=== PATIENT | male | born 1970 | race Caucasian/White ===

== ENCOUNTER 2024-12-23 22:34 | Emergency (ER) | payer SELFPAY ==
[2024-12-23] MEDS ORDERED: BENZONATATE 100 MG CAP PO ONE (23:12)
[2024-12-23] MEDS ORDERED: NA CHLORIDE 0.9% 500 ML ONE (23:12)
[2024-12-23 23:35] LABS: Absolute Basophils 0.1 K/uL (0-0.5); Absolute Eosinophils 0.5 K/uL (0-0.5); Absolute Lymphocytes (CBC) 2.7 K/uL (0.7-4.9); Absolute Neutrophil 6.9 K/uL (1.8-8.0); Basophils % 0.9 % (0-1.3); Eosinophils % 4.3 % (0-4.4); Hematocrit 42.7 % (39.6-49.0); Hemoglobin 14.5 g/dL (13.6-17.9); Lymphocytes % 24.1 % (15.3-44.8); MCH 30.2 pg (27.0-35.0); MCV 88.9 fL (80-100); MPV 8.7 fL (7.6-11.3); Monocytes % 8.9 % (3.3-12.3); Neutrophils % 61.8 % (41.7-73.7); Platelets 252 thou/uL (152-406); RBC Red Blood Cell Count 4.81 M/uL (4.33-5.43); Red Cell Distribution Width 12.9 % (12.1-15.2)
[2024-12-23 23:35] LABS: Specific Gravity 1.027 (1.005-1.030); Urine Bilirubin NEGATIVE (Negative); Urine Blood Negative (Negative); Urine Clarity Clear (Clear); Urine Color Yellow (Yellow); Urine Glucose NEGATIVE (Negative); Urine Ketones NEGATIVE (Negative); Urine Microscopic Reflex YN NO UMIC; Urine Nitrite NEGATIVE (Negative); Urine Protein NEGATIVE (Negative); Urine Urobilinogen Normal (Normal)
[2024-12-23] MEDS ORDERED: LEVALBUTEROL 1.25 MG/3 ML NEB ONE (23:35)
[2024-12-23] MEDS ORDERED: IPRATROPIUM BROM 0.5MG/2.5ML ONE (23:35)
[2024-12-23] MEDS ORDERED: dexAMETHasone 10 MG/ML VIAL ONE (23:36)
[2024-12-23] MEDS ORDERED: levoFLOXacin 750 MG TAB ONE (23:36)
[2024-12-23 23:42] LABS: PT Prothrombin Time 11.4 SECONDS (10-13.0)
[2024-12-23 23:44] LABS: Barbiturates NEGATIVE (NEGATIVE); Benzodiazepines NEGATIVE (NEGATIVE); Cocaine NEGATIVE (NEGATIVE); METHAMPHETAM NEGATIVE (NEGATIVE); Methadone NEGATIVE (NEGATIVE); Opiates NEGATIVE (NEGATIVE); Phencyclidine NEGATIVE (NEGATIVE); THC Cannibis NEGATIVE (NEGATIVE)
--- NOTE | 2024-12-24 00:41 | RAD REPORT ---
EXAM DESCRIPTION: Chest Pa And Lat (2 Views) CLINICAL HISTORY: COUGH COMPARISON: None TECHNIQUE: 2 views of the chest. FINDINGS: Lung volumes adequate. Cardiac silhouette is normal in size. No pneumothorax. No large pleural effusion. No focal consolidation. No acute bony finding. IMPRESSION: No evidence of acute cardiopulmonary disease. Electronically signed by: Sharmin Gamino MD 12/23/2024 11:21 PM CDT RP TYG Due to temporary technical issues with the PACS/[employer] reporting system, reports are being selma d by the in-house radiologist without review as a courtesy to ensure prompt reporting the interpreting radiologist is fully responsible for the content of the report. Transcribed Date/Time: 12/24/2024 12:40 AM
[2024-12-24 01:02] LABS: Influenza A Ag Negative; Influenza B Ag Negative; SARS-CoV-2 Antigen Rapid Res Negative (Negative)
[2024-12-24 01:50] LABS: ALT/SGPT 20 U/L (16-61); AST/SGOT 12 U/L (15-37); Albumin 3.1 g/dL (3.4-5.0); Albumin/Globulin Ratio 0.8 (1.1-1.8); Alkaline Phosphatase 68 U/L (45-117); Anion Gap 8.8 mEq/L (5.0-15.0); BUN Blood Urea Nitrogen 14 mg/dL (7-18); Bicarbonate 26 mEq/L (21-32); Bilirubin Total 0.2 mg/dL (0.2-1.0); Globulin 3.8 g/dL (2.3-3.5); Glomerular Filtration Rate 108 ml/min (=/>90); Glucose Level 104 mg/dL (74-106); Magnesium 2.1 mg/dL (1.6-2.4); NT PRO-BNP 53 pg/mL (<125); Potassium 3.8 mEq/L (3.5-5.1); Protein, Total 6.9 g/dL (6.4-8.2); Sodium Level 137 mEq/L (136-145); Troponin High Sensitivity 3.7 pg/mL (<58.9)
[2024-12-24 01:51] LABS: Bilirubin Direct < 0.2 mg/dL (0-0.2)
--- NOTE | 2024-12-24 02:04 | EDPHYS ---
Physician Documentation [facility] Name: Brody Gifford Age: 54 yrs Sex: Male : 1970 Arrival Date: 12/23/2024 Time: 22:34 Bed 6 Private MD: ED Physician Tigre Ramsey HPI: 12/23 23:23 This 54 yrs old Male presents to ER via Ambulatory with complaints of Cough. jm 23:23 The patient or guardian reports cough, difficulty breathing, flu symptoms. Onset: The jm symptoms/episode began/occurred 3 day(s) ago. Severity of symptoms: At their worst the symptoms were mild, moderate, in the emergency department the symptoms are unchanged. Modifying factors: The symptoms are alleviated by nothing, the symptoms are aggravated by nothing. Associated signs and symptoms: The patient has no apparent associated signs or symptoms. The patient has experienced similar episodes in the past, multiple times. Historical: - Allergies: 22:52 No Known Allergies; br2 - PMHx: 22:52 None; br2 - Immunization history:: Adult Immunizations not up to date. - Infectious Disease History:: Denies. - Social history:: Smoking status: Patient reports the use of cigarette tobacco products, smokes one-half pack cigarettes per day, Patient/guardian denies using alcohol, street drugs. - Family history:: not pertinent. ROS: 23:23 Constitutional: Negative for fever, chills, and weight loss, Eyes: Negative for injury, jm pain, redness, and discharge, ENT: Negative for injury, pain, and discharge, Neck: Negative for injury, pain, and swelling, Cardiovascular: Negative for chest pain, palpitations, and edema, Abdomen/GI: Negative for abdominal pain, nausea, vomiting, diarrhea, and constipation, Back: Negative for injury and pain, : Negative for injury, bleeding, discharge, and swelling, MS/Extremity: Negative for injury and deformity, Skin: Negative for injury, rash, and discoloration, Neuro: Negative for headache, weakness, numbness, tingling, and seizure, Psych: Negative for depression, anxiety, suicide ideation, homicidal ideation, and hallucinations, Allergy/Immunology: Negative for hives, rash, and allergies, Endocrine: Negative for neck swelling, polydipsia, polyuria, polyphagia, and marked weight changes, Hematologic/Lymphatic: Negative for swollen nodes, abnormal bleeding, and unusual bruising, 23:23 Respiratory: Positive for cough, 23:23 MS/extremity: Negative for acute changes, injury or acute deformity, Exam: 23:23 Constitutional: This is a well developed, well nourished patient who is awake, alert, jm and in no acute distress. Head/Face: Normocephalic, atraumatic. Eyes: Pupils equal round and reactive to light, extra-ocular motions intact. Lids and lashes normal. Conjunctiva and sclera are non-icteric and not injected. Cornea within normal limits. Periorbital areas with no swelling, redness, or edema. ENT: Nares patent. No nasal discharge, no septal abnormalities noted. Tympanic membranes are normal and external auditory canals are clear. Oropharynx with no redness, swelling, or masses, exudates, or evidence of obstruction, uvula midline. Mucous membranes moist. Neck: Trachea midline, no thyromegaly or masses palpated, and no cervical lymphadenopathy. Supple, full range of motion without nuchal rigidity, or vertebral point tenderness. No Meningismus. Chest/axilla: Normal chest wall appearance and motion. Nontender with no deformity. No lesions are appreciated. Cardiovascular: Regular rate and rhythm with a normal S1 and S2. No gallops, murmurs, or rubs. Normal PMI, no JVD. No pulse deficits. Abdomen/GI: Soft, non-tender, with normal bowel sounds. No distension or tympany. No guarding or rebound. No evidence of tenderness throughout. Back: No spinal tenderness. No costovertebral tenderness. Full range of motion. Male : Normal genitalia with no discharge or lesions. Skin: Warm, dry with normal turgor. Normal color with no rashes, no lesions, and no evidence of cellulitis. MS/ Extremity: Pulses equal, no cyanosis. Neurovascular intact. Full, normal range of motion., bilateral aka Neuro: Awake and alert, GCS 15, oriented to person, place, time, and situation. Cranial nerves II-XII grossly intact. Motor strength 5/5 in all extremities. Sensory grossly intact. Cerebellar exam normal. Normal gait. Psych: Awake, alert, with orientation to person, place and time. Behavior, mood, and affect are within normal limits. 23:23 ECG was reviewed by the Attending Physician. 23:23 Respiratory: mild respiratory distress is noted, Respirations: labored breathing, is not present, asymmetrical chest movement, is not seen, Breath sounds: bronchial sounds, that are mild, decreased breath sounds, that are mild, Respiratory rate: 18 Vital Signs: 22:49 BP 117 / 61; Pulse 71; Resp 18; Temp 97.6; Pulse Ox 96% ; Weight 95.25 kg; Height 5 ft. br2 8 in. ; Pain 5/10; 23:45 BP 114 / 75; Pulse 67; Resp 21; Pulse Ox 99% ; jj7 12/24 00:45 BP 128 / 81; Pulse 70; Resp 18; Pulse Ox 96% ; j7 01:45 BP 122 / 93; Pulse 88; Resp 20; Pulse Ox 95% ; j7 02:13 BP 122 / 93; Pulse 88; Resp 17; Temp 97.9; Pulse Ox 95% ; 7 12/23 22:49 Body Mass Index 31.93 (95.25 kg, 172.72 cm) br2 12/23 22:49 Pain Scale: Adult br2 MDM: 12/23 22:37 Medical Screening Exam initiated jm 23:28 Data reviewed: vital signs, nurses notes, lab test result(s), EKG, radiologic studies, jm plain films. Consideration of Admission/Observation Escalation of care including admission/observation considered. I considered the following discharge prescriptions or medication management in the emergency department Medications were administered in the Emergency Department. See MAR. Test considered but Not performed: CT: no ct chest. Historians other than the Patient: pt well informed. Care significantly affected by the following chronic conditions: Obesity, tobacco use. Counseling: I had a detailed discussion with the patient and/or guardian regarding the historical points, exam findings, and any diagnostic results supporting the discharge/admit diagnosis, lab results, radiology results, the need for outpatient follow up, a family practitioner, a systems support specialist. 12/23 22:38 Order name: Basic Metabolic Panel; Complete Time: 01:52 [facility] 12/23 22:38 Order name: CBC with Diff; Complete Time: 23:42 [facility] 12/23 22:38 Order name: LFT's; Complete Time: 01:52 [facility] 12/23 22:38 Order name: Magnesium; Complete Time: 01:52 [facility] 12/23 22:38 Order name: NT PRO-BNP; Complete Time: 01:52 jm 12/23 22:38 Order name: PT-INR; Complete Time: 00:00 jm 12/23 22:38 Order name: Troponin HS; Complete Time: 01:52 jm 12/23 22:38 Order name: Urinalysis w/ reflexes; Complete Time: 23:37 jm 12/23 22:57 Order name: UDS; Complete Time: 00:00 jm 12/24 00:11 Order name: COVID-19 Ag + Flu A+B Ag; Complete Time: 01:06 sp 04 22:38 Order name: Chest Pa And Lat (2 Views) XRAY; Complete Time: 01:00 jm 12/23 22:38 Order name: Cardiac monitoring; Complete Time: 23:03 jm 12/23 22:38 Order name: EKG - Nurse/Tech; Complete Time: 23:03 jm 12/23 22:38 Order name: IV Saline Lock; Complete Time: 23:07 jm 12/23 22:38 Order name: Labs collected and sent; Complete Time: 23:07 jm 12/23 22:38 Order name: O2 Per Protocol; Complete Time: 23:03 jm 12/23 22:38 Order name: O2 Sat Monitoring; Complete Time: 23:03 jm EC:23 Rate is 66 beats/min. Rhythm is regular. QRS [place] is Normal. MS interval is normal. QRS jm interval is normal. QT interval is normal. No Q waves. T waves are Normal. No ST changes noted. Clinical impression: NSR w/ Non-specific ST/T Changes and No evidence of ischemia. Interpreted by me. Reviewed by me. Administered Medications: 23:15 Drug: Tessalon Perle PO 200 mg PO once Route: PO; 12/24 01:27 Follow up: Response: Marked relief of symptoms j12/23 23:17 Drug: NS 0.9% IV 500 ml 500 ml IV at 1 bolus once; to be given as a bolus over 30 jj7 minutes Volume: 500 ml; Route: IV; Rate: 1 bolus; Site: right forearm; 23:59 Follow up: IV Status: Completed infusion j 23:43 Drug: LevOfloxacin PO 750 mg PO once Route: PO; 12/24 01:27 Follow up: Response: No adverse reaction j12/23 23:44 Drug: Decadron - Dexamethasone IVP 10 mg IVP once Route: IVP; Site: right antecubital; al5 12/24 01:27 Follow up: Response: Marked relief of symptoms jj7 12/23 23:44 Drug: Levalbuterol Inhalation 2.5 mg Inhalation once Route: Inhalation; al5 12/24 01:27 Follow up: Response: Marked relief of symptoms jj7 12/23 23:44 Drug: Ipratropium Inhalation Aerosol 0.5 mg Inhalation once Route: Inhalation; al5 12/24 01:27 Follow up: Response: Marked relief of symptoms jj7 Disposition Summary: 12/24/24 02:03 Discharge Ordered Notes: Location: Home jm Problem: new jm Symptoms: have improved jm Condition: Stable jm Diagnosis - Cough jm - Tobacco abuse counseling jm - Tobacco use jm Followup: jm - With: Private Physician - When: 2 - 3 days - Reason: Recheck today's complaints, Continuance of care, Re-evaluation by your physician Followup: jm - With: Casimiro Ortiz MD - When: 2 - 3 days - Reason: Recheck today's complaints, Re-evaluation by your physician Discharge Instructions: - Discharge Summary Sheet jm - Self-Destructive Behavior jm - Steps to Quit Smoking jm - Health Risks of Smoking mj - Cool Mist Vaporizer jm - Steps to Quit Smoking, [id number] jm - Cough, Adult, [id number] jm - Cough, Adult jm Forms: - Medication Reconciliation Form jm - Antibiotic Education jm - Prescription Opioid Use jm - Patient Portal Instructions jm - Leadership Thank You Letter [facility] Prescriptions: - albuterol sulfate 90 mcg/actuation Inhalation HFA Aerosol Inhaler - inhale 2 puff INHALATION route every 4-6 hours as needed for shortness of jm breath or wheezing; 1 unit; Refills: 0, Product Selection Permitted - Tessalon Perles 100 mg Oral capsule - take 2 capsule ORAL route every 8 hours As needed; 30 capsule; Refills: 0, jm Product Selection Permitted - levofloxacin 750 mg Oral tablet - take 1 tablet ORAL route once daily; 6 tablet; Refills: 0, Product Selection jm Permitted - Dexamethasone 4mg Oral tablet - take 1 tablet ORAL route daily for 4 days; 4 tablet; Refills: 0, Product jm Selection Permitted Signatures: Dispatcher [employer] EDMS Tigre Ramsey MD MD cha Johnson, Juwairiyah, RN RN jj7 Kristi Lucas, RN RN al5 Rupal Goncalves, RN RN br2 Corrections: (The following items were deleted from the chart) 12/23 22:39 22:39 BASIC METABOLIC PANEL+C.LAB.BRZ ordered. EDMS EDMS 22:39 22:39 CBC+H.LAB.BRZ ordered. EDMS EDMS 22:39 22:39 HEPATIC FUNCTION+C.LAB.BRZ ordered. EDMS EDMS 22:39 22:39 MAGNESIUM+C.LAB.BRZ ordered. EDMS EDMS 22:39 22:39 PROBNP+C.LAB.BRZ ordered. EDMS EDMS 22:39 22:39 PROTIME (+INR)+COAG.LAB.BRZ ordered. EDMS EDMS 22:39 22:39 Troponin High Sensitivity+C.LAB.BRZ ordered. EDMS EDMS 22:39 22:39 Chest Pa And Lat (2 Views)+RAD.RAD.BRZ ordered. EDMS EDMS 22:39 22:39 Urinalysis+U.LAB.BRZ ordered. EDMS EDMS
--- NOTE | 2024-12-24 02:04 | ER ---
Nurse's Notes [facility] Name: Brody Gifford Age: 54 yrs Sex: Male : 1970 Arrival Date: 12/23/2024 Time: 22:34 Bed 6 Private MD: Diagnosis: Cough;Tobacco abuse counseling;Tobacco use Presentation: 12/23 22:49 Chief complaint: Patient states: COUGH SINCE LAST WEDNESDAY...OTC MEDS NOT HELPING. PT br2 STATES HE HAS BEEN SOB SINCE YESTERDDAY. Coronavirus screen: Client denies travel out of the [place] in the last 14 days. Ebola Screen: Patient denies exposure to infectious person. Initial Sepsis Screen: Does the patient meet any 2 criteria? No. Patient's initial sepsis screen is negative. Does the patient have a suspected source of infection? No. Patient's initial sepsis screen is negative. Risk Assessment: Do you want to hurt yourself or someone else? Patient reports no desire to harm self or others. Onset of symptoms was December 16, 2024. 22:49 Method Of Arrival: Ambulatory br2 22:49 Acuity: SANIYA 3 br2 Triage Assessment: 22:52 General: Appears in no apparent distress. comfortable, Behavior is calm, cooperative. br2 Pain: Complains of pain in epigastric area Pain currently is 5 out of 10 on a pain scale. Historical: - Allergies: 22:52 No Known Allergies; br2 - PMHx: 22:52 None; br2 - Immunization history:: Adult Immunizations not up to date. - Infectious Disease History:: Denies. - Social history:: Smoking status: Patient reports the use of cigarette tobacco products, smokes one-half pack cigarettes per day, Patient/guardian denies using alcohol, street drugs. - Family history:: not pertinent. Screenin:00 [facility] ED Fall Risk Assessment (Adult) History of falling in the last 3 months, jj7 including since admission No falls in past 3 months (0 pts) Confusion or Disorientation No (0 pts) Intoxicated or Sedated No (0 pts) Impaired Gait No (0 pts) Mobility Assist Device Used No (0 pt) Altered Elimination No (0 pt) Score/Fall Risk Level 0 - 2 = Low Risk Oriented to surroundings, Maintained a safe environment, Educated pt \T\ family on fall prevention, incl call for assistance when getting out of bed, Assessed \T\ reinforced patient's understanding of fall precautions. Abuse screen: Denies threats or abuse. Nutritional screening: No deficits noted. Tuberculosis screening: No symptoms or risk factors identified. Assessment: 23:00 General: Appears in no apparent distress. comfortable, Behavior is calm, cooperative, jj7 appropriate for age. Respiratory: Reports cough that is dry, hacking, pain with cough PRESSURE IN HEAD WITH COUGHING. Vital Signs: 22:49 BP 117 / 61; Pulse 71; Resp 18; Temp 97.6; Pulse Ox 96% ; Weight 95.25 kg; Height 5 ft. br2 8 in. ; Pain 5/10; 23:45 BP 114 / 75; Pulse 67; Resp 21; Pulse Ox 99% ; jj7 12/24 00:45 BP 128 / 81; Pulse 70; Resp 18; Pulse Ox 96% ; jj7 01:45 BP 122 / 93; Pulse 88; Resp 20; Pulse Ox 95% ; jj7 02:13 BP 122 / 93; Pulse 88; Resp 17; Temp 97.9; Pulse Ox 95% ; jj7 12/23 22:49 Body Mass Index 31.93 (95.25 kg, 172.72 cm) br2 12/23 22:49 Pain Scale: Adult br2 ED Course: 12/23 22:36 Patient arrived in ED. rg4 22:37 Tigre Ramsey MD is Attending Physician. [facility] 22:52 Triage completed. br2 22:52 Arm band placed on right wrist. br2 23:00 Patient has correct armband on for positive identification. Call light in reach. Adult jj7 w/ patient. Provided Education on: USE OF CALL TOMAS. Client placed on continuous cardiac and pulse oximetry monitoring. NIBP monitoring applied. patient monitor on. Pulse ox on. 23:00 Inserted saline lock: 20 gauge in right forearm, using aseptic technique. Blood jj7 collected. Flushed with 10 mL NS. 23:04 Chest Pa And Lat (2 Views) XRAY In Process Unspecified. EDMS 23:17 Basic Metabolic Panel Sent. jj7 23:17 CBC with Diff Sent. jj7 23:17 LFT's Sent. jj7 23:17 Magnesium Sent. jj7 23:17 NT PRO-BNP Sent. jj7 23:17 PT-INR Sent. jj7 23:17 Troponin HS Sent. jj7 23:17 UDS Sent. jj7 23:17 Urinalysis w/ reflexes Sent. jj7 23:44 Kristi Lucas, DANI is Primary Nurse. 12/24 00:03 Warm blanket given. sa1 02:03 Casimiro Ortiz MD is Referral Physician. [facility] 02:13 No provider procedures requiring assistance completed. IV discontinued, intact, jj7 bleeding controlled, No redness/swelling at site. Pressure dressing applied. Administered Medications: 12/23 23:15 Drug: Tessalon Perle PO 200 mg PO once Route: PO; 12/24 01:27 Follow up: Response: Marked relief of symptoms jj7 12/23 23:17 Drug: NS 0.9% IV 500 ml 500 ml IV at 1 bolus once; to be given as a bolus over 30 jj7 minutes Volume: 500 ml; Route: IV; Rate: 1 bolus; Site: right forearm; 23:59 Follow up: IV Status: Completed infusion jj7 23:43 Drug: LevOfloxacin PO 750 mg PO once Route: PO; 12/24 01:27 Follow up: Response: No adverse reaction jj7 12/23 23:44 Drug: Decadron - Dexamethasone IVP 10 mg IVP once Route: IVP; Site: right antecubital; 12/24 01:27 Follow up: Response: Marked relief of symptoms jj7 12/23 23:44 Drug: Levalbuterol Inhalation 2.5 mg Inhalation once Route: Inhalation; 12/24 01:27 Follow up: Response: Marked relief of symptoms jj7 12/23 23:44 Drug: Ipratropium Inhalation Aerosol 0.5 mg Inhalation once Route: Inhalation; al12/24 01:27 Follow up: Response: Marked relief of symptoms jj7 Medication: 12/23 23:00 VIS not applicable for this client. jj7 Outcome: 12/24 02:03 Discharge ordered by . jm 02:13 Discharged to home ambulatory, jj7 02:13 Condition: improved 02:13 Discharge instructions given to patient, Instructed on discharge instructions, follow up and referral plans. medication usage, Demonstrated understanding of instructions, follow-up care, medications, Prescriptions given X 4, 02:17 Patient left the ED. jj7 Signatures: Dispatcher [employer] EDMS Tigre Ramsey MD MD cha Garcia, Rubi rg4 Ethan Hayward RN RN jj7 Kristi Lucas RN RN al5 Sultan Tj sa1 Rupal Goncalves RN RN br2
[2024-12-24 02:28] VITALS: BP 122/93; O2SAT 95
[2024-12-24 02:30] VITALS: TEMP 97.9
--- NOTE | 2024-12-26 10:59 | EKG ---
Test Date: 2024-12-23 Test Time: 22:57:50 Supervisor [employer]: PAULO MEASUREMENT RESULTS: Intervals: Rate: 66 [place]: 128 QRSD: 90 QT: 402 QTc: 421 [place]: P: 49 [place]: 128 QRS: 44 T: 23 INTERPRETIVE STATEMENTS: Normal sinus rhythm Normal ECG No previous ECG available for comparison Electronically Signed On 12-26-24 10:55:53 CDT by Neel Pagan
== END 2024-12-24 02:17 | disposition home or self-care (01) ==
LOC: ER 22:34
DX: R05.9 Cough, unspecified (principal); Z72.0 Tobacco use; Z71.6 Tobacco abuse counseling; Z11.52 Encounter for screening for COVID-19
CPT/HCPCS: 36415; 71046; 80048; 80076; 80307; 81003; 83735; 83880; 84484; 85025; 85610; 87428; 93005; 96361; 96374; 99285; J1100; J7040; J7614; J7644